=== PATIENT | male | born 1975 | race Caucasian/White ===

== ENCOUNTER 2023-03-26 02:59 | Outpatient (CLI) | payer BC, SELFPAY ==
[2023-03-26 13:18] LABS: Anion Gap 9.9 mmol/L (3-11); BUN 14 mg/dL (7-18); CO2 30.1 mmol/L (21.0-32.0); CREATININE 0.9 mg/dL (0.70-1.30); Calcium 9.2 mg/dL (8.5-10.1); Calculated LDL 120 mg/dL (<100); Chloride 100 mmol/L (98-107); Cholesterol 195 mg/dL (<200); Estimated GFR 105.35 (mL/min/1.73m2); Glucose 110 mg/dL (74-106); HDL Cholesterol 46 mg/dL (40-60); Potassium 3.1 mmol/L (3.5-5.1); Sodium 140 mmol/L (136-145); Triglyceride 147 mg/dL (<150)
== END 2023-03-26 03:00 | disposition home or self-care (01) ==
LOC: LOS 02:59
PROVIDERS: PCP Family Medicine; Visit Provider Family Medicine
DX: E78.5 Hyperlipidemia, unspecified (principal); E87.1 Hypo-osmolality and hyponatremia
CPT/HCPCS: 36415; 80048; 80061

== ENCOUNTER 2023-03-28 15:07 | Outpatient (CLI) | payer BC, SELFPAY ==
--- NOTE | 2023-03-28 15:00 | RT.EKG_ITS ---
APPROVED REPORT Exam: Resting ECG Reason for Exam: Elevated BP Patient Location: O HR:101 bpm ECG Measurements Heart Rate 101 AXIS MT 151 P 47 QRSd 115 QRS 29 QT 364 T 47 QTc 472 Conclusion Sinus tachycardia...rate> 99 Nonspecific intraventricular conduction delay...QRSd >115mS, not LBBB/RBBB
== END 2023-03-28 15:08 | disposition home or self-care (01) ==
LOC: DI.CM 15:08
PROVIDERS: PCP Family Medicine; Visit Provider Family Medicine
DX: R07.9 Chest pain, unspecified (principal)
CPT/HCPCS: 93010

== ENCOUNTER 2024-02-29 14:28 | Emergency (ER) | payer BC, SELFPAY ==
[2024-02-29 14:30] VITALS: BP 227/119; PULSE 103; RESP 18; TEMP 36.6; O2SAT 96
--- NOTE | 2024-02-29 14:30 | DI.RAD_ITS ---
Exam(s) XR FOOT LT COMPLETE EXAM: XR FOOT LT COMPLETE CLINICAL HISTORY: pain. TECHNIQUE: 2D digital imaging was performed. Three views. COMPARISON: No exams were available for comparison FINDINGS: BONES: No acute fracture is present. No bony destructive lesion is seen. JOINTS: No dislocation present. Mild degenerative changes at the intertarsal joints and 1st tarsal metatarsal joint. SOFT TISSUE: Mild soft tissue swelling near 5th MTP joint. No foreign body or abnormal gas collectio n. IMPRESSION: Soft tissue swelling and mild degenerative changes. DATA REPOSITORY: RADIATION DOSE DELIVERED:
--- NOTE | 2024-02-29 14:41 | W.ED.GENAD ---
Discharge Plan Disposition Patient Disposition: Home Condition: Stable Discharge Details Clinical Impression: Essential hypertension, Left foot pain Primary Care Provider: Chicho Stern ED Provider: King Razo Home Meds and New Rx's Prescriptions: Continued (DME) cpap See Rx Instructions .Route .MEDSUPPLY Qty: 1 0RF Rx Instructions: use as directed losartan-hydrochlorothiazide 100-25 mg tablet 1 tab PO DAILY Qty: 90 3RF spironolactone [Aldactone] 25 mg tablet 25 mg PO DAILY Qty: 90 3RF Discharge Instructions Additional Instructions: Your x-ray did not show concerning findings. Your blood pressure initially here was elevated, you should follow-up with your primary care provider within 1 to 2 weeks for recheck. Having uncontrolled blood pressure over time can lead to outcomes such as strokes and heart attacks. Stop using the crutches and hard soled shoe when you are able to tolerate bearing weight. If you feel more ill, have severe worsening of pain or new symptoms such as high fevers return to the emergency department for reevaluation HPI General Date/Time Provider Initiated Documentation: 02/29/24 14:29. Limitations to Documentation: no limitations. Information obtained by: patient. History of Present Illness 48 year old M presents to the emergency department with the chief complaint of left foot pain, described as moderate, Quality is described as aching, and is localized to the left and lower extremity. Patient reports no radiation. Patient started experiencing this hour(s) (1) and it has been constant. Other factors that worsen symptoms (putting weight on his left foot) . Patient notes no other symptoms.. Patient did receive the following treatments prior to arrival, none Related Data Home Medications Medication Instructions Recorded Confirmed cpap #1 ea 03/28/23 12/11/23 spironolactone 25 mg tablet 25 mg PO DAILY #90 tabs 12/05/23 02/29/24 (Aldactone) losartan 100 1 tab PO DAILY #90 tabs 12/11/23 02/29/24 mg-hydrochlorothiazide 25 mg tablet Previous Rx's Medication Instructions Recorded cpap #1 ea 03/28/23 spironolactone 25 mg tablet 25 mg PO DAILY #90 tabs 12/05/23 (Aldactone) losartan 100 1 tab PO DAILY #90 tabs 12/11/23 mg-hydrochlorothiazide 25 mg tablet Allergies Allergy/AdvReac Type Severity Reaction Status Date / Time Penicillins Allergy Severe difficulty Unverified 02/29/24 14:34 breathing amlodipine AdvReac Intermediate nausea Verified 02/29/24 14:34 sertraline AdvReac Intermediate Anxiety Verified 02/29/24 14:34 General Stated Complaint: Orthopedic THELMA: 3 Review of Systems All systems reviewed & are unremarkable except as noted in HPI and below Constitutional Constitutional: Denies chills, Denies fever(s) and Denies weakness Cardiovascular Cardiovascular: Denies chest pain and Denies dyspnea Respiratory Respiratory: Denies cough and Denies dyspnea Gastrointestinal Gastrointestinal: Denies abdominal pain, Denies nausea and Denies vomiting Integumentary/Breasts Skin/Breast: Denies rash Neurologic Neurologic: Denies weakness Exam Const General: no acute distress Orientation: alert [facility] Head: normal to inspection Ears: external ears normal General nose exam: external nose normal Mouth: moist mucous membranes Eyes General: appearance normal, both eyes and all related structures Neck Neck: normal visual inspection Resp Effort & Inspection: normal respiratory effort and able to speak in complete sentences Cardio Rate: regular rate Skin General skin exam: no rashes or lesions noted Neuro General: patient alert and patient oriented x3 Extrem General: normal to inspection Psych Mental Status: mental status grossly normal Course Vital Signs Vital signs: Vital Signs Temperature 36.6 C 02/29/24 14:30 Pulse 103 H 02/29/24 14:30 Respiratory Rate 18 02/29/24 14:30 Blood Pressure 227/119 H 02/29/24 14:30 Pulse Oximetry 96 02/29/24 14:30 Temperature 36.6 C 02/29/24 14:30 Temperature Source Skin 02/29/24 14:30 Pulse 103 H 02/29/24 14:30 Respiratory Rate 18 02/29/24 14:30 Respiratory Effort Normal 02/29/24 14:33 Blood Pressure 227/119 H 02/29/24 14:30 Blood Pressure Position Sitting 02/29/24 14:30 Pulse Oximetry 96 02/29/24 14:30 Oxygen Delivery Method Room Air 02/29/24 14:30 Oxygen Flow Rate 0 02/29/24 14:30 Medical Decision Making 48-year-old male with a history of hypertension comes in with left foot pain. He says he was in his usual state of health feeling well was lifting up a lawnmower when he had sudden onset left foot pain. Denies falling or dropping anything on the foot. He localizes the pain to the plantar portion of his midfoot. There is no visible or palpable deformity, he has tenderness area. No erythema or warmth, full range of motion of the ankle can move all of his toes, intact sensation and pulses. Suspect fasciitis versus foot strain, will obtain x-rays to rule out stress fracture. No findings on exam to suggest infectious etiologies. He is noted to be hypertensive on triage blood pressure, denies any chest pain or other symptoms suggestive of endorgan damage. X-ray on my read unremarkable, patient does not want to wait to have the official read, I will give him a phone call. Will provide crutches and a postop hard soled shoe. He did not take his blood pressure medicine, I did advise that he should take these daily and follow-up with his primary for recheck his uncontrolled hypertension can lead to consequences such as stroke and heart attack. He is stable for discharge, return precautions given Differential Diagnosis Differential Diagnosis: Strain, fasciitis, stress fracture Quality:SDOH Health Related Social Needs: No Data to Display PFSH All Active Problems (Updated 02/29/24 @ 14:45 by King Razo MD) Left foot pain (Acute) Umbilical hernia (Acute) Anxiety (Chronic) Positive colorectal cancer screening using DNA-based stool test (Acute) DAVID (obstructive sleep apnea) (Chronic) Preventative health care (Acute) Tobacco abuse (Acute) Obesity (Chronic) Tinea versicolor (Acute) Essential hypertension (Acute) Medical History (Updated 02/29/24 @ 14:45 by King Razo MD) Asthma Social History Smoking/Tobacco Use Status: Current every day Tobacco Type: cigarettes Smoking risk assessment performed?: Yes Alcohol Intake: current Alcohol Intake frequency: a few times a week Drug use: Never Substance use type: does not use
[2024-02-29 15:12] VITALS: BP 214/146
--- NOTE | 2024-02-29 15:42 | DI.VRAD_ITS ---
PROCEDURE INFORMATION: Exam: XR Left Foot Exam date and time: 02/29/2024 2:56 PM Age: 48 years old Clinical indication: Other: Pain TECHNIQUE: Imaging protocol: Radiologic exam of the left foot. Views: 3 or more views. COMPARISON: No relevant prior studies available. FINDINGS: Bones/joints: Normal. Soft tissues: Normal. IMPRESSION: No acute bony findings. If clinical symptoms persist recommend followup film in 7-10 days. Dictated and Authenticated by: Johnna Razo MD. Ordering:BHAKTI Malik MD
== END 2024-02-29 15:32 | disposition home or self-care (01) ==
PROVIDERS: Emergency Provider Emergency Medicine; PCP Family Medicine
DX: M79.672 Pain in left foot (principal); R26.2 Difficulty in walking, not elsewhere classified
CPT/HCPCS: 29515; 99283; 73630

== ENCOUNTER 2024-05-18 21:02 | Emergency (ER) | payer BC, SELFPAY ==
[2024-05-18 21:06] VITALS: BP 200/126; PULSE 98; RESP 18; TEMP 36.8; O2SAT 98
[2024-05-18 21:19] VITALS: RESP 18
--- NOTE | 2024-05-18 21:30 | RT.EKG_ITS ---
APPROVED REPORT Exam: Resting ECG Reason for Exam: chest pain Patient Location: E HR:90 bpm ECG Measurements Heart Rate 90 AXIS LA 162 P 22 QRSd 110 QRS -70 QT 382 T 20 QTc 467 Conclusion Sinus rhythm...normal P axis, V-rate 60- 99 Left anterior fascicular block...axis(240,-40), init forces inf
[2024-05-18] MEDS: LORazepam 1 MG TAB PO (21:36)
[2024-05-18 21:49] LABS: Abs Immature Grans 0.07 10^3/uL (0.0-0.06); Absolute Basophil Count 0.03 10^3/uL (0.0-0.2); Absolute Eosinophil Count 0.03 10^3/uL (0.0-0.7); Absolute Lymphocyte Count 1.92 10^3/uL (1.2-3.4); Absolute Monocyte Count 1.19 10^3/uL (0.1-0.8); Absolute Neutrophil Count 7.78 10^3/uL (1.2-6.7); Basophils % 0.3 %; Eosinophils % 0.3 %; HCT 47.4 % (40.0-50.0); HGB 16.4 g/dL (13.5-17.5); Immature Grans % 0.6 %; Lymphocytes % 17.4 %; MCH 32.9 pg (27.0-33.0); MCHC 34.6 % (32.0-36.0); MCV 95 fL (80-95); MPV 9.5 fL (8.0-11.0); Monocytes % 10.8 %; Neutrophils % 70.6 %; Platelet Count 193 10^3/uL (130-400); RBC 4.99 10^6/uL (4.36-5.78); RDW 12.6 % (11.8-14.1); RDW-SD 44.2 fL; WBC 11.02 10^3/uL (4.4-10.8)
[2024-05-18 22:10] LABS: Troponin I < 50 ng/L (< or =60)
[2024-05-18 22:13] LABS: ALT 59 U/L (16-63); AST 24 U/L (15-37); Albumin 3.9 g/dL (3.4-5.0); Alkaline Phosphatase 54 U/L (46-116); Anion Gap 7.7 mmol/L (3-11); BUN 7 mg/dL (7-18); CO2 29.3 mmol/L (21.0-32.0); CREATININE 0.8 mg/dL (0.70-1.30); Calcium 9.3 mg/dL (8.5-10.1); Chloride 98 mmol/L (98-107); Estimated GFR 108.49 (mL/min/1.73m2); Glucose 140 mg/dL (74-106); Magnesium 1.9 mg/dL (1.8-2.4); Potassium 3.1 mmol/L (3.5-5.1); Sodium 135 mmol/L (136-145); TSH (W/Ref FT4) 2.42 uIU/mL (0.36-3.74); Total Protein 8.2 g/dL (6.4-8.2)
[2024-05-18] MEDS: LORazepam 1 MG TAB 2 MG PO (22:39)
--- NOTE | 2024-05-19 15:46 | ED.GENADUL_ITS ---
Discharge Plan Disposition Patient Disposition: Home Condition: Stable Discharge Details Clinical Impression: Elevated blood pressure reading, Restlessness Primary Care Provider: Chicho Stern ED Provider: Lucinda Odom Home Meds and New Rx's Prescriptions: Continued (DME) cpap See Rx Instructions .Route .MEDSUPPLY Qty: 1 0RF Rx Instructions: use as directed losartan-hydrochlorothiazide 100-25 mg tablet 1 tab PO DAILY Qty: 90 3RF spironolactone [Aldactone] 25 mg tablet 25 mg PO DAILY Qty: 90 3RF Discharge Instructions Instructions: Lowering Your Risk of High Blood Pressure, Anxiety, Adult ED Additional Instructions: Please follow-up with your primary care physician and let them know you would like to be in a long-term anxiety medication and your concerns regarding increased anxiety with the last medication that was attempted May take Ativan 1 mg as needed for panic or anxiety, do not operate your vehicle for 8 hours after taking this medication or combine with alcohol Increase fluids Try to cut down on your alcohol consumption as this may be contributing to your anxiety, usually recommend cutting down by 1 drink daily Please return should you develop new or worsening complaints and please have your blood pressure rechecked by your primary care physician closely in the outpatient setting Referrals: Chicho Stern MD [Primary Care Provider] - 2 days Discharge Data Discharge Date/Time-TO BE ENTERED AT DEPARTURE: 05/18/24 22:40 HPI General Date/Time Provider Initiated Documentation: 05/18/24 21:04 . HPI Narrative: 48-year-old male feeling jittery and restless since 10 AM today. States she has been under increased stressors at work and has some intermittent anxiety in the past but nothing as persistent as this per patient. Has attempted anxiety medications in the past that have worsened the symptoms for patient. Denies any fever or chills. Denies any chest pain or shortness of breath. Denies any dizziness or weakness. Consuming approximately 5 mixed drinks daily. Has not had alcohol today but denies any history of withdrawal symptoms in the past. Denies any fever or chills. Denies any calf pain or swelling. Related Data Home Medications Medication Instructions Recorded Confirmed cpap #1 ea 03/28/23 05/18/24 spironolactone 25 mg tablet 25 mg PO DAILY #90 tabs 12/05/23 05/18/24 (Aldactone) losartan 100 1 tab PO DAILY #90 tabs 12/11/23 05/18/24 mg-hydrochlorothiazide 25 mg tablet Previous Rx's Medication Instructions Recorded cpap #1 ea 03/28/23 spironolactone 25 mg tablet 25 mg PO DAILY #90 tabs 12/05/23 (Aldactone) losartan 100 1 tab PO DAILY #90 tabs 12/11/23 mg-hydrochlorothiazide 25 mg tablet Allergies Allergy/AdvReac Type Severity Reaction Status Date / Time Penicillins Allergy Severe difficulty Unverified 05/18/24 21:09 breathing amlodipine AdvReac Intermediate nausea Verified 05/18/24 21:09 sertraline AdvReac Intermediate Anxiety Verified 05/18/24 21:09 General Stated Complaint: Anxiety THELMA: 4 Exam Narrative Exam Narrative: Alert, oriented, restless 48-year-old gentleman, pupils equal round reactive to light and accommodation, lungs clear to auscultation, cardiac rate rhythm regular, no respiratory distress, ambulatory with steady gait, no suicidal ideation, appears anxious Course Vital Signs Vital signs: Vital Signs Temperature 36.8 C 05/18/24 21:06 Pulse 98 H 05/18/24 21:06 Respiratory Rate 18 05/18/24 21:06 Blood Pressure 200/126 H 05/18/24 21:06 Pulse Oximetry 98 05/18/24 21:06 Temperature 36.8 C 05/18/24 21:06 Pulse 98 H 05/18/24 21:06 Respiratory Rate 18 05/18/24 21:19 Respiratory Effort Normal, Non-Labored 05/18/24 21:19 Respiratory Depth Normal 05/18/24 21:19 Respiratory Pattern Normal 05/18/24 21:19 Blood Pressure 200/126 H 05/18/24 21:06 Blood Pressure Position Sitting 05/18/24 21:06 Pulse Oximetry 98 05/18/24 21:06 Oxygen Delivery Method Room Air 05/18/24 21:06 Oxygen Flow Rate 0 05/18/24 21:06 Pain Level 0 05/18/24 21:06 Lab/Test Results Lab/Test Results: Laboratory Tests Range/Units 05/18/24 21:45 WBC (4.4-10.8) 10^3/uL 11.02 H RBC (4.36-5.78) 10^6/uL 4.99 Hgb (13.5-17.5) g/dL 16.4 Hct (40.0-50.0) % 47.4 MCV (80-95) fL 95 MCH (27.0-33.0) pg 32.9 MCHC (32.0-36.0) % 34.6 RDW (11.8-14.1) % 12.6 Plt Count (130-400) 10^3/uL 193 MPV (8.0-11.0) fL 9.5 Immature Gran % % 0.6 Neutrophils % % 70.6 Lymphocytes % % 17.4 Monocytes % % 10.8 Eosinophils % % 0.3 Basophils % % 0.3 Nucleated RBC % (0.0-0.3) % 0.0 Absolute Neutrophils (1.2-6.7) 10^3/uL 7.78 H Absolute Lymphocytes (1.2-3.4) 10^3/uL 1.92 Absolute Monocytes (0.1-0.8) 10^3/uL 1.19 H Absolute Eosinophils (0.0-0.7) 10^3/uL 0.03 Absolute Basophils (0.0-0.2) 10^3/uL 0.03 Sodium (136-145) mmol/L 135 L Potassium (3.5-5.1) mmol/L 3.1 L Chloride (98-107) mmol/L 98 Carbon Dioxide (21.0-32.0) mmol/L 29.3 Anion Gap (3-11) mmol/L 7.7 BUN (7-18) mg/dL 7 Creatinine (0.70-1.30) mg/dL 0.8 Est GFR (CKD-EPI 2020) (mL/min/1.73m2) 108.49 Glucose (74-106) mg/dL 140 H Calcium (8.5-10.1) mg/dL 9.3 Magnesium (1.8-2.4) mg/dL 1.9 Total Bilirubin (0.2-1.0) mg/dL 0.50 AST (15-37) U/L 24 ALT (16-63) U/L 59 Alkaline Phosphatase (46-116) U/L 54 Troponin I (< or =60) ng/L < 50 Total Protein (6.4-8.2) g/dL 8.2 Albumin (3.4-5.0) g/dL 3.9 TSH (0.36-3.74) uIU/mL 2.42 Medical Decision Making 48-year-old male presents with report of feeling anxious and jittery since 10 AM today. On exam his blood pressure is quite high which patient states is consistent with whitecoat anxiety. He does state he baseline has hypertension and regularly takes his antihypertensives. Denies any suicidal ideation. Has previously been on antianxiety medication in the past, which has been unsuccessful for him in controlling his symptoms. Denies any auditory or visual hallucinations. Given patient's hypertension and generalized restlessness with change in symptoms for him, I did order some blood work, EKG including troponin. All these tests were within normal limits per patient. Mild hypokalemia which was supplemented for home. Patient encouraged to discuss with his primary care physician regarding more long-term anxiety medication. Supplied with two 1 mg tablets of Ativan.. Discharged home in stable condition with stable vitals. Encouraged outpatient counselor acquisition. Quality:SDOH Health Related Social Needs: No Data to Display PFSH All Active Problems (Updated 05/18/24 @ 22:29 by DEWEY Hernandes) Restlessness (Acute) Elevated blood pressure reading (Acute) Umbilical hernia (Acute) Anxiety (Chronic) Positive colorectal cancer screening using DNA-based stool test (Acute) DAVID (obstructive sleep apnea) (Chronic) Preventative health care (Acute) Tobacco abuse (Acute) Obesity (Chronic) Tinea versicolor (Acute) Essential hypertension (Acute) Medical History (Updated 05/18/24 @ 22:29 by DEWEY Hernandes) Asthma Social History Smoking/Tobacco Use Status: Current every day Tobacco Type: cigarettes Smoking risk assessment performed?: Yes Alcohol Intake: current Alcohol Intake frequency: a few times a week Alcohol type: hard liquor Drug use: Never Substance use type: does not use Housing: house Do you feel safe at home: Yes Do you feel safe in your relationship?: Yes
== END 2024-05-18 22:40 | disposition home or self-care (01) ==
PROVIDERS: Emergency Provider Physician Assistant; PCP Family Medicine
DX: F41.9 Anxiety disorder, unspecified (principal); R03.0 Elevated blood-pressure reading, without diagnosis of hypertension; I44.4 Left anterior fascicular block; R45.1 Restlessness and agitation; F17.210 Nicotine dependence, cigarettes, uncomplicated
CPT/HCPCS: 36415; 80053; 93005; 99284; 83735; 84443; 84484; 85025; 93010